=== PATIENT | female | born 1970 ===

== ENCOUNTER 2024-02-10 10:51 | Day surgery (SDC) | payer BC ==
[2024-02-10 11:14] VITALS: TEMP 98.1
[2024-02-10] MEDS: IV FLUID CONTINUATION 1,000 ML IV ONE (11:24)
[2024-02-10] MEDS: LACTATED RINGERS 1,000 ML IV SCH (11:25)
[2024-02-10] MEDS ORDERED: PROPOFOL 10 MG/ML 20 ML VIAL IV ONE (12:54)
--- NOTE | 2024-02-10 12:56 | P.GSHP ---
History of Present Illness H&P Date: 02/10/24 Chief Complaint: Screening colonoscopy Is a 53-year-old female presents today for screening colonoscopy. Patient denies any significant GI complaints. Past Medical History Past Medical History: Thyroid Disorder Additional Past Medical History / Comment(s): HYPOTENSION. PINCHED NERVE IN BOTTOM OF FOOT (OCC PAIN). History of Any Multi-Drug Resistant Organisms: None Reported Additional Past Surgical History / Comment(s): THROIDECTOMY 1994. WISDOM TEETH. Past Anesthesia/Blood Transfusion Reactions: Postoperative Nausea & Vomiting ( PONV) Smoking Status: Never smoker Medications and Allergies Home Medications Medication Instructions Recorded Confirmed Type Ibuprofen [Advil] 200 - 400 mg PO Q6H PRN 02/05/24 02/10/24 History Levothyroxine Sodium [Synthroid] 88 mcg PO QAM 02/05/24 02/10/24 History Multivitamins, Thera [Multivitamin 1 tab PO DAILY 02/05/24 02/10/24 History (formulary)] Allergies Allergy/AdvReac Type Severity Reaction Status Date / Time No Known Allergies Allergy Verified 02/10/24 11:10 Surgical - Exam Vital Signs Temp Pulse Resp BP Pulse Ox 98.1 F 103 H 18 162/81 100 02/10/24 11:10 02/10/24 11:10 02/10/24 11:10 02/10/24 11:10 02/10/24 11:10 - General well developed, well nourished, no distress - Eyes PERRL - ENT normal pinna - Neck no masses - Respiratory normal expansion - Cardiovascular Rhythm: regular - Abdomen Abdomen: soft, non tender Assessment and Plan Assessment: Will perform screening colonoscopy.
--- NOTE | 2024-02-10 13:15 | P.OP ---
Date of Procedure: 02/10/24 Preoperative Diagnosis: Screening colonoscopy Postoperative Diagnosis: Tortuous colon Normal colon generalized to hepatic flexure Procedure(s) Performed: Colonoscopy Anesthesia: MAC Surgeon: Sameer Hinkle Pathology: none sent Condition: stable Disposition: PACU Description of Procedure: The patient was placed on the endoscopy table in the lateral position. She received IV sedation. Digital rectal exams performed. There were few small external hemorrhoids. The flexible colonoscope was then placed patient anus passed throughout the colon. Scope could not be passed beyond the hepatic flexure sigmoid tortuosity bowel. This point scope withdrawn. The visualized transverse colon, descending colon and sigmoid colon appeared normal. Scope was back the rectum this appeared normal. Scope withdrawn for the patient. Patient was scheduled for a barium enema.
[2024-02-10 13:21] VITALS: RESP 16
[2024-02-10 13:33] VITALS: BP 113/71; PULSE 91
== END 2024-02-10 14:21 | disposition home or self-care (01) ==
LOC: ORWHC2ENDO 10:51
PROVIDERS: ATTEND Surgery
DX: Z12.11 Encounter for screening for malignant neoplasm of colon (principal); K64.4 Residual hemorrhoidal skin tags; E07.9 Disorder of thyroid, unspecified; Z79.890 Hormone replacement therapy; Z98.890 Other specified postprocedural states
CPT/HCPCS: 45378; J2704

== ENCOUNTER → 2024-02-11 | Outpatient (CLI) | payer BC ==
--- NOTE | 2024-02-11 09:30 | FL ---
EXAMINATION TYPE: FL barium enema DATE OF EXAM: 02/11/2024 9:03 AM CLINICAL INDICATION:Female, 53 years old with history of Z12.11 screening; COMPARISON: 04/11/2023 TECHNIQUE: The procedure was explained and patient history elicited. All patient questions were answ ered prior to beginning. Multiple spot fluoroscopic images of the colon were obtained after the recta l administration of liquid barium as the contrast agent. Multiple postprocedural overhead images, w ere obtained and reviewed. Fluoroscopic time: min Fluoroscopic images: Radiographs taken: DAP: Not reported [email or web address] FINDINGS: The mathematics faculty member abdominal radiograph demonstrates a normal bowel gas pattern without dilated loo ps of small or large bowel. There is no evidence for organomegaly or pneumoperitoneum. No abnormal calcifications. The visualized osseous structures are intact. Redundant colon limits evaluation. The colon demonstrates normal course and contour without evidence of focal stricture, internal filling defects, or abnormal outpouching. Views of the cecum with manua l compression are unremarkable. Postevacuation images are unremarkable. IMPRESSION: Limited evaluation due to overlapping redundant colon. No evidence for abnormal stricture or mass les ion within the sigmoid colon. [facility], , 02/11/2024 9:28 AM
== END | disposition home or self-care (01) ==
LOC: RADFLMAIN 07:51
PROVIDERS: ATTEND Surgery
CPT/HCPCS: 74270